=== PATIENT | male | born 1960 | race Caucasian/White ===

== ENCOUNTER 2018-06-20 14:00 | Outpatient (RCR) | payer BC, SELFPAY ==
--- NOTE | 2018-06-20 09:15 | PTTR_ITS ---
DATE: 06/20/18 SUBJECTIVE: Pt states that he did feel a little bit better after the last tx. He actually felt pretty well in terms of mobility as he was on his vacation. However he got back to work today and even after just 2 hours of time he noticed that he was starting to develop some knee pain again. OBJECTIVE: Manual therapy: ([id number]). Pt place din the standing position where he was assessed at the foot with a notable pes cavus deformity. high arch and his shoe wear appears to be very flimsy and non supportive and this may even be a contributing factor. He was advised to possible pursue something a little more stiff through the shank and to supply a much more supportive medial arch. He is then placed in supine receiving gentle long axis traction through the (R) LE and then guided into over pressure with knee extension. After the decompression through the tibial femoral joint was complete through the traction maneuver. He is mobilized with patellar medial glides and then overpressure into hamstring stretching with active isolated stretching technique. He is positioned into prone with knee flexion, coordinated with hip extension to stress the rectus femoris with notable muscle tension through this area and this is done (B). Light anterior glide was supplied with knee in 20-30* of knee flexion. Pt tolerated tx well. He had no pain at the end of tx and a significant relief of his symptoms. Direct treatment time: 30 minutes Total treatment time: 30 minutes
== END 2018-07-08 23:59 | disposition home or self-care (01) ==
LOC: PT 14:00
PROVIDERS: PCP Family Medicine; Referring Provider Family Medicine; Visit Provider Family Medicine
DX: M25.561 Pain in right knee (principal); M25.562 Pain in left knee
CPT/HCPCS: 97140

== ENCOUNTER 2019-10-25 12:47 | Emergency (ER) | payer OTHER, BC, SELFPAY ==
[2019-10-25 12:52] VITALS: BP 127/80; PULSE 72; RESP 18; TEMP 36.5; O2SAT 96
--- NOTE | 2019-10-25 13:03 | ED.GENADUL_ITS ---
Discharge Plan Disposition Patient Disposition: HOME Condition: Stable Discharge Details Chief Complaint: HeadInjury Clinical Impression: Concussion Primary Care Provider: Hollie Weeks ED Provider: Kyler Alegria Discharge Instructions Instructions: Concussion (ED) Medical Decision Making 59 yo male with hx of htn, hld, comes in with cc of head ache. He was pulling out bleachers when he tripped and fell backwards from standing height. He hit the back of his head on the floor, and had loc for 2 seconds per pt. Has posterior head pain without hematomas and left lateral neck tenderness, no midline pain. Has right elbow pain but has full rom of the elbow and no deformity so doubt fx. No chest pain, abd pain. Suspect concussion and cervical strain but given loc will image head and c spine ct negative per Dr. landrum. Will d/c with concussion precautions. Return precautions also given Differential Diagnosis Differential Diagnosis: concussion, tbi, cervical strain Imaging Data Radiologic Study: Attestation: I personally reviewed and interpreted this imaging study as follows: Imaging: CT Scan Radiologist's impression: no acute findings HPI General Mode of arrival: ambulatory . Date/Time Provider Initiated Documentation: 10/25/19 12:59 . Limitations to Documentation: no limitations . Information obtained by: patient . History of Present Illness 59 year old M presents to the emergency department with the chief complaint of head pain, described as moderate, Quality is described as aching, Patient reports no radiation. Patient started experiencing this hour(s) (1) and it has been constant. No relieving factors improve symptom(s), No exacerbating factors reported . Patient notes no other symptoms.. Patient did receive the following treatments prior to arrival, none Related Data Allergies Allergy/AdvReac Type Severity Reaction Status Date / Time No Known Allergies Allergy Unverified 10/25/19 12:56 General Stated Complaint: HeadInjury KEISHA: 3 Review of Systems All systems reviewed & are unremarkable except as noted in HPI and below Constitutional Constitutional: Denies chills, Denies fever(s) and Denies weakness Cardiovascular Cardiovascular: Denies chest pain and Denies dyspnea Respiratory Respiratory: Denies cough and Denies dyspnea Gastrointestinal Gastrointestinal: Denies abdominal pain, Denies nausea and Denies vomiting Genitourinary Genitourinary: Denies dysuria Musculoskeletal Musculoskeletal: Denies joint swelling Integumentary/Breasts Skin/Breast: Denies rash Neurologic Neurologic: Denies weakness PFSH Social History Smoking/Tobacco Use Status: Former Tobacco Use Alcohol Intake: current Alcohol Intake frequency: a few times a week Substance use type: does not use Do you feel safe at home: Yes Do you feel safe in your relationship?: Yes Exam Const General: no acute distress Orientation: alert HENMT Head: normal to inspection Ears: external ears normal General nose exam: external nose normal Mouth: moist mucous membranes Eyes General: appearance normal, both eyes and all related structures Neck Neck: normal visual inspection Resp Effort & Inspection: normal respiratory effort and able to speak in complete sentences Cardio Rate: regular rate Skin General skin exam: no rashes or lesions noted Neuro General: alert and oriented x3 Extrem General: normal to inspection Psych Mental Status: mental status grossly normal Course Vital Signs Vital signs: Vital Signs Temperature 36.5 C 10/25/19 12:52 Pulse 72 10/25/19 12:52 Respiratory Rate 18 10/25/19 12:52 Blood Pressure 127/80 10/25/19 12:52 Pulse Oximetry 96 10/25/19 12:52 Temperature 36.5 C 10/25/19 12:52 Temperature Source Skin 10/25/19 12:52 Pulse 72 10/25/19 12:52 Respiratory Rate 18 10/25/19 12:52 Respiratory Effort 10/25/19 12:56 Respiratory Depth Normal 10/25/19 12:56 Respiratory Pattern Normal 10/25/19 12:56 Blood Pressure 127/80 10/25/19 12:52 Blood Pressure Position Sitting 10/25/19 12:52 Pulse Oximetry 96 10/25/19 12:52 Oxygen Delivery Method Room Air 10/25/19 12:52 Oxygen Flow Rate 0 10/25/19 12:52 Pain Level 3 10/25/19 12:52
--- NOTE | 2019-10-25 13:24 | DI.CT_ITS ---
EXAM: CT HEAD CERVICAL SPINE WO CLINICAL HISTORY: pain s/p fall TECHNIQUE: Noncontrast COMPARISON: No exams were available for comparison FINDINGS: Head CT: No intracranial hemorrhage or skull fracture is seen. There is no evidence of infarct or m ass. There are no significant white matter changes or atrophy. The ventricles are normal in size. The orbits, sinuses and mastoid air cells are unremarkable. C-spine CT: There is no evidence of fracture. The alignment is normal. There are mild degenerative disc changes. There is an incidental posterior calcification. The airway appears intact. There is no paraspinal hematoma. IMPRESSION: No acute abnormality.
== END 2019-10-25 13:55 | disposition home or self-care (01) ==
PROVIDERS: Emergency Provider Emergency Medicine; PCP Family Medicine
DX: S06.0X1A Concussion with loss of consciousness of 30 minutes or less, initial encounter (principal); S16.1XXA Strain of muscle, fascia and tendon at neck level, initial encounter; W01.198A Fall on same level from slipping, tripping and stumbling with subsequent striking against other object, initial encounter; M25.521 Pain in right elbow
CPT/HCPCS: 99284; 70450; 72125

== ENCOUNTER 2019-11-02 08:42 | Emergency (ER) | payer OTHER, BC, SELFPAY ==
[2019-11-02 08:46] VITALS: BP 128/74; PULSE 79; RESP 16; TEMP 36.4; O2SAT 97
[2019-11-02] MEDS: diazePAM 5 MG TAB PO (09:26)
--- NOTE | 2019-11-02 10:35 | DI.CT_ITS ---
EXAM: CT HEAD WO CLINICAL HISTORY: tinnitus, nausea, head injury, r/o delayed bleed TECHNIQUE: The exam was performed according to the usual protocol. COMPARISON: CT HEAD CERVICAL SPINE WO from 10/25/2019 FINDINGS: Ventricles and sulci are consistent with the patient's age. No intracranial hemorrhage, midline shif t or mass effect is identified. The ventricles are intact. The basilar cisterns are patent. There is mucosal thickening in the ethmoid air cells and maxillary sinuses bilaterally. No fluid levels ar e seen in the visualized paranasal sinuses. The mastoid air cells are well pneumatized. The calvari um is intact. IMPRESSION: No acute intracranial process. The findings were discussed with the emergency department on the date of the examination.
--- NOTE | 2019-11-02 10:51 | W.ED.GENAD ---
Discharge Plan Disposition Patient Disposition: HOME Condition: Stable Discharge Details Chief Complaint: HeadInjury Clinical Impression: Concussion Primary Care Provider: Hollie Weeks ED Provider: Lindsey Cobb Home Meds and New Rx's Prescriptions: New upgydxghen-sjsfwlyithkwn-sbxn [Fioricet] 50-300-40 mg capsule 1 cap PO TID PRN (Reason: pain) Qty: 3 RF: 0 Discharge Instructions Instructions: Concussion (ED) Additional Instructions: Please minimize your daily activities. Rest activities as tolerated. Sleep plenty. Drink plenty of fluids. Continue Naprosyn and Tylenol as discussed. Avoid screen use, reading or higher functioning activities as discussed. Your CT scan today is normal and very reassuring. Follow-up with neurology or occupational medicine for reevaluation as discussed. Referral to neurology was provided. Return for any worsening, alarming symptoms or concerning symptoms sooner if needed Stand Alone Forms: Work Release Referrals: Aurora Stewart MD [ [facility] STAFF PHYSICIAN] - Discharge Data Discharge Date/Time-TO BE ENTERED AT DEPARTURE: 11/02/19 11:24 Medical Decision Making This is a 59-year-old gentleman who presents after a head injury on the of this month falling and striking his head posterior associated with loss of consciousness. Was seen and evaluated in the emergency room had CT head and cervical spine which were unremarkable. Patient reports escalation of symptoms last few days specifically with new onset of nausea without vomiting associated with left ear tinnitus. Patient reports persistent posterior head discomfort and reports a numbness. Denies active vision change. Patient does on exam have a mild unsteady gait however cerebellar function is normal as tested on his neurologic exam with bustqg-hzim-xrcuwy testing. Patient's does have a horizontal nystagmus but otherwise his neurologic exam is unremarkable. Patient speech is clear. Patient does report increase in symptomatology with use of screens or mild activities at home. Patient has been seen by occupational medicine earlier this week and advised to minimize activities. Patient is concerned with new onset of symptoms if there is any delayed injury. Attempted MRI which patient was unable to tolerate after medication Will CT head as patient is unable to tolerate MRI to rule out any delayed intracranial hemorrhage. Per Dr. Kay's verbal report patient has a normal CT of the head and no identified intracranial bleeding. Discussed use of Fioricet for symptomatic relief. Patient consents to 3 tablets in 1 day trial if helpful will speak to his occupational medicine or PCP regarding continuing the medication. Work note provided. The patient was stable and requested discharge. Prior to discharge, my usual and customary return precautions were reviewed with the patient - this included follow-up instructions and reasons to return to the Emergency Department if conditions worsens, does not improve as expected, or other new concerns arise. HPI General Date/Time Provider Initiated Documentation: 11/02/19 08:42. HPI Narrative: Is a 59-year-old patient who presents to the emergency room for concerns of new symptoms attributed to a recent head injury. Patient reports he fell backwards from the bleachers from a standing height striking his head posteriorly on the gym floor. This occurred at work. Patient reports he had a brief 2-second loss of consciousness. Was evaluated in the emergency room fairly immediately after his onset of symptoms and did have a CT of his head and cervical spine which were unremarkable for identifiable intracranial hemorrhage or cervical spine fracture. Patient reports he returned to work the following day, patient at this time is complaining of new onset of tinnitus in the left ear. Patient also complaining of nausea which was noted yesterday evening after [place] dinner. Patient attributed this to eating too much however patient is feeling quite anxious. Patient is somewhat tearful. Patient reports significant difficulty focusing when reading and worsening frustration when using screens or tablets. Patient concerned with the possibility of escalating head injury symptoms and new symptoms which have developed in last few days Related Data Home Medications Medication Instructions Recorded Confirmed qvdlvomwxj-jotzzylhiazdi-gfay 1 cap PO TID PRN #3 cap 11/02/19 [Fioricet] Previous Rx's Medication Instructions Recorded chxojguvos-ysgyeglghiffw-ntwt 1 cap PO TID PRN #3 cap 11/02/19 [Fioricet] Allergies Allergy/AdvReac Type Severity Reaction Status Date / Time No Known Allergies Allergy Verified 10/30/19 14:35 General Stated Complaint: HeadInjury KEISHA: 3 Review of Systems All systems reviewed & are unremarkable except as noted in HPI and below Constitutional Constitutional: Denies chills, Reports fatigue, Denies fever(s), Reports headache(s) and Denies malaise Eyes Eyes: Denies blind spots, Denies change in vision and Denies diplopia ENT Ears, Nose, Mouth, and Throat: Denies vertigo, Reports dizziness, Denies ear discharge, Denies otalgia, Reports headache(s), Reports tinnitus, Denies sinus pain and Denies sinus pressure Gastrointestinal Gastrointestinal: Denies diarrhea, Reports nausea and Denies vomiting Musculoskeletal Musculoskeletal: Denies numbness and Denies tingling Neurologic Neurologic: Denies vertigo, Reports dizziness, Reports headache(s), Denies numbness, Denies tingling and Denies paresthesias Endocrine Endocrine: Reports fatigue [facility] Medical History Asthma (Chronic) Hyperlipidemia (Acute) Hypertension (Chronic) Social History Smoking/Tobacco Use Status: Former Tobacco Use Alcohol Intake: current Alcohol Intake frequency: a few times a week Substance use type: does not use Do you feel safe at home: Yes Do you feel safe in your relationship?: Yes Exam Narrative Exam Narrative: CONST: Healthy appearing patient, in no acute distress. Well hydrated. Alert and alert. HENMT: Head nomocephalic, normal to inspection. Atraumatic. Hearing grossly normal. External ear canal no erythema or swelling. TM normal bilaterally. Nose normal to inspection. No rhinnorhea. Normal facial exam. Oral mucosa normal. Tounge normal. Dentition normal. Normal posterior oropharynx. Uvula midline. EYES: General normal appearance. Alignment normal. Eyelids normal. Conjunctiva normal. Sclera normal. PERRL. Horizontal nystagmus present NECK: Normal visual inspection. FROM. No lymphadenopathy. Trachea midline. mild cervical midline tenderness. CHEST: Normal insepection of the chest. MUSCULOSKELETAL: mild of balanced Gait. FROM of all extremities. Distal neurovascularly intact. Sensation intact distally. SKIN: Normal. Dry. No rashes. NEURO: Alert and awake. Speech clear. Alert and oriented x 3. Speech is clear. Cranial nerves intact as tested III - XI. Normal Xigces-ef-zwba test. No pronator drift. Normal heel-montoya test. No Nystagmus. Gait normal. Strength intact in all extremities. Sensation intact in all extremities. PSYCH: Normal affect. Cooperative. Course Vital Signs Vital signs: Vital Signs Temperature 36.4 C L 11/02/19 08:46 Pulse 79 11/02/19 08:46 Respiratory Rate 16 11/02/19 08:46 Blood Pressure 128/74 11/02/19 08:46 Pulse Oximetry 97 11/02/19 08:46 Temperature 36.4 C L 11/02/19 08:46 Temperature Source Temporal Artery Scan 11/02/19 08:46 Pulse 79 11/02/19 08:46 Respiratory Rate 16 11/02/19 08:46 Respiratory Effort Non-Labored 11/02/19 08:46 Respiratory Depth Normal 11/02/19 08:46 Respiratory Pattern Normal 11/02/19 08:46 Blood Pressure 128/74 11/02/19 08:46 Blood Pressure Position Sitting 11/02/19 08:46 Pulse Oximetry 97 11/02/19 08:46 Oxygen Delivery Method Room Air 11/02/19 08:46 Oxygen Flow Rate 0 11/02/19 08:46 Pain Level 2 11/02/19 08:46
[2019-11-02 11:17] VITALS: BP 116/69; PULSE 68; RESP 18; O2SAT 96
== END 2019-11-02 11:24 | disposition home or self-care (01) ==
PROVIDERS: Emergency Provider Physician Assistant; PCP Family Medicine
DX: S09.90XA Unspecified injury of head, initial encounter (principal); S06.0X9A Concussion with loss of consciousness of unspecified duration, initial encounter; H93.12 Tinnitus, left ear; R11.0 Nausea; W00.0XXA Fall on same level due to ice and snow, initial encounter
CPT/HCPCS: 99284; 70450

== ENCOUNTER 2019-11-30 09:48 | Emergency (ER) | payer BC, SELFPAY ==
[2019-11-30] VITALS (16 sets, daily range): BP systolic 118–132; BP diastolic 66–82; PULSE 65–78; RESP 16–23; TEMP 36.6; O2SAT 93–98
--- NOTE | 2019-11-30 10:15 | ED.GENADUL_ITS ---
Discharge Plan Disposition Patient Disposition: HOME Condition: Fair Discharge Details Chief Complaint: Abd Prob Clinical Impression: Diverticulitis Primary Care Provider: Hollie Weeks ED Provider: Idalia Talavera Home Meds and New Rx's Prescriptions: New metronidazole [Flagyl] 500 mg tablet 500 mg PO TID 10 Days Qty: 30 RF: 0 ciprofloxacin HCl [Cipro] 500 mg tablet 500 mg PO BID 10 Days Qty: 20 RF: 0 oxycodone 5 mg capsule 5 mg PO Q6H PRN (Reason: pain) Qty: 7 RF: 0 Continued aspirin 81 mg tablet 81 mg PO DAILY RF: 0 pravastatin 20 mg tablet 20 mg PO DAILY RF: 0 metoprolol succinate 200 mg tablet extended release 24 hr 200 mg PO DAILY RF: 0 losartan 50 mg tablet 50 mg PO DAILY RF: 0 albuterol sulfate 90 mcg/actuation HFA aerosol inhaler 1 puff IH ONCE PRNRF: 0 omega-3 fatty acids Capsule 1,200 mg PO DAILY RF: 0 magnesium oxide 400 mg magnesium Tablet 400 mg PO DAILY RF: 0 Discharge Instructions Instructions: Diverticulitis (ED), Diverticulitis Diet (ED) Additional Instructions: Encourage water intake. Please take the antibiotics as prescribed. Even if symptoms improve, please take the entire course. You may use Tylenol and/or ibuprofen as needed for discomfort. If this is insufficient, please augment with the oxycodone as prescribed. Take this medication only as prescribed and do not drive while taking this medication. You have an appointment tomorrow morning at 930 with your primary care for reevaluation. If you develop fever/chills, increased pain or other new/worsening symptoms please seek care urgently once again. Stand Alone Forms: Work Release Referrals: Hollie Weeks [Primary Care Provider] - Discharge Data Discharge Date/Time-TO BE ENTERED AT DEPARTURE: 11/30/19 15:45 Medical Decision Making Patient is a pleasant 59-year-old male presents today with chief complaint of left lower quadrant pain. He reports this began 2 days ago. Denies any fevers or chills. Reports the pain has progressively been increasing. Denies nausea vomiting. No change in bowel habits. No change in appetite. States that this pain is similar to when he has had diverticulitis historically. He has not noted any melena, hematochezia. No hematuria. No back pain. No difficulty with voiding. No previous abdominal surgeries. On exam, patient is resting comfortably. He appears nontoxic. Vital signs within normal limits. Patient is exquisitely tender in the left lower quadrant. He does have guarding but no rebound tenderness. No pain elsewhere about the abdomen. I am primary concern for diverticulitis patient has had this historically. His last colonoscopy was [address] to rule out evidence of complications or other underlying abdominal etiology. Labs reviewed. No leukocytosis. AST and ALT are both minimally elevated 44 and 66 respectively. Lipase is within normal limits. Does have trace blood in his urine. CT reviewed by radiologist, significant for diverticulitis. No evidence of abscess or free air. Discussed findings with patient. Will begin on Ciprofloxacin, Flagyl. Patient has received IV Tylenol and a total of 2mg IV dilaudid, patient feeling someowhat improved. Will give Toradol as well. Patient feels improved and is ready for discharge. We discussed the concerns and possible risks of diverticulitis. As he is able to tolerate PO intake and is feeling improved, I feel that outpatient management is appropriate for the patient. He was given strict return precautions. Was given first dosing of antibiotics here, tolerated well. Advised non-opiate pain management first. As his pain was initially quite severe, will dischargge with prescription for Oxycodone to be used if the non-opiate options are insufficient. Discussed safe usage, safe storage. Encouraged water intake. Called patient's primary care and is able to get an appointment tomorrow 9:30AM with PCP. All of their questions and concerns were addressed, they are in agreement with this plan. [facility] General Mode of arrival: ambulatory . Date/Time Provider Initiated Documentation: 11/30/19 10:15 . Limitations to Documentation: no limitations . Information obtained by: patient, family () and RN notes reviewed . History of Present Illness 59 year old M presents to the emergency department with the chief complaint of LLQ pain, described as severe and similar to prior episodes (hx of diveriticulitis 15 years ago, feels similar), with intensity rated at 8. Quality is described as stabbing, and is localized to the abdomen. Patient reports no radiation. Patient started experiencing this day(s) (2) and it has been constant. No relieving factors improve symptom(s), No exacerbating factors reported . Patient notes denies chest pain, diaphoresis, fever/chills, loss of appetite, nausea/vomiting, rash, shortness of breath and weakness. Patient did receive the following treatments prior to arrival, none Related Data Home Medications Medication Instructions Recorded Confirmed albuterol sulfate 90 mcg/actuation 1 puff IH ONCE PRN 11/09/19 11/30/19 aerosol inhaler aspirin 81 mg tablet 81 mg PO DAILY 11/09/19 11/30/19 losartan 50 mg tablet 50 mg PO DAILY 11/09/19 11/30/19 metoprolol succinate 200 mg 200 mg PO DAILY 11/09/19 11/30/19 tablet,extended release 24 hr omega-3 fatty acids 1,200 mg PO DAILY cap 11/09/19 11/30/19 pravastatin 20 mg tablet 20 mg PO DAILY 11/09/19 11/30/19 ciprofloxacin HCl [Cipro] 500 mg PO BID 10 Days #20 tab 11/30/19 magnesium oxide 400 mg PO DAILY 11/30/19 11/30/19 metronidazole [Flagyl] 500 mg PO TID 10 Days #30 tab 11/30/19 oxycodone 5 mg PO Q6H PRN #7 cap 11/30/19 Previous Rx's Medication Instructions Recorded ciprofloxacin HCl [Cipro] 500 mg PO BID 10 Days #20 tab 11/30/19 metronidazole [Flagyl] 500 mg PO TID 10 Days #30 tab 11/30/19 oxycodone 5 mg PO Q6H PRN #7 cap 11/30/19 Allergies Allergy/AdvReac Type Severity Reaction Status Date / Time No Known Allergies Allergy Verified 11/30/19 09:59 General Stated Complaint: Abd Prob KEISHA: 3 Review of Systems Constitutional Constitutional: Reports as per HPI, Denies chills, Denies fatigue, Denies fever(s) and Reports headache(s) (improving, had concussion a month ago, still has mild persistent symptoms) ENT Ears, Nose, Mouth, and Throat: Reports headache(s) (improving, had concussion a month ago, still has mild persistent symptoms) Cardiovascular Cardiovascular: Reports as per HPI, Denies chest pain and Denies dyspnea Respiratory Respiratory: Reports as per HPI, Denies cough and Denies dyspnea Gastrointestinal Gastrointestinal: Reports as per HPI, Denies melena, Denies change in stool character, Denies cramping, Denies fecal incontinence, Denies nausea, Denies vomiting and Denies hematemesis Genitourinary Genitourinary: Denies system reviewed and no additional complaints, except as docu (patient denies any change in urinary habits) Musculoskeletal Musculoskeletal: Reports as per HPI and Denies back pain Integumentary/Breasts Skin/Breast: Reports as per HPI and Denies rash Neurologic Neurologic: Reports as per HPI and Reports headache(s) (improving, had concussion a month ago, still has mild persistent symptoms) Endocrine Endocrine: Denies fatigue [facility] Medical History Anxiety (Chronic) Asthma (Chronic) Hyperlipidemia (Acute) Hypertension (Chronic) Social History Smoking/Tobacco Use Status: Former Tobacco Use Alcohol Intake: current Alcohol Intake frequency: a few times a week Drug use: Never Substance use type: does not use Number of Children: 1 What is your relationship status?: Panel score (0-1 are the most socially isolated patients): 1 Seatbelt use: always Do you feel safe at home: Yes Do you feel safe in your relationship?: Yes Exam Const General: cooperative, healthy appearing, comfortable, no acute distress and well developed Nutritional Appearance: well nourished and overweight Orientation: alert and awake HENVA Head: normal to inspection Mouth: moist mucous membranes Resp Effort & Inspection: normal respiratory effort, able to speak in complete sentences and no respiratory distress Auscultation: clear to auscultation bilaterally, no rales, no rhonchi and no wheezes Cardio Rate: regular rate Rhythm: regular rhythm Heart Sounds: S1 normal and S2 normal GI Inspection: normal to inspection, no edema, non-distended, no visible herniation and no visible pulsation Palpation: soft, no hepatosplenomegaly, no aortic enlargement, not firm, guarding in the LLQ, no hernias, no masses, not rigid and tender in the LLQ; with no rebound tenderness Percussion: normal to percussion Auscultation: normal bowel sounds Back/Spine/Pelvis Back: no CVA tenderness Skin General skin exam: no rashes or lesions noted Trauma: no lacerations or abrasions Neuro General: alert and awake Cognition: normal cognition Speech: speech normal Gait: normal gait Psych Appearance: grossly normal and well kempt Mental Status: mental status grossly normal Speech and Movement: speech and movement normal Course Vital Signs Vital signs: Vital Signs Temperature 36.6 C 11/30/19 09:54 Pulse 70 11/30/19 09:54 Respiratory Rate 16 11/30/19 09:54 Blood Pressure 132/82 11/30/19 09:54 Pulse Oximetry 98 11/30/19 09:54 Temperature 36.6 C 11/30/19 09:54 Temperature Source Skin 11/30/19 09:54 Pulse 70 11/30/19 09:54 Respiratory Rate 16 11/30/19 09:54 Respiratory Effort 11/30/19 10:01 Blood Pressure 132/82 11/30/19 09:54 Pulse Oximetry 98 11/30/19 09:54 Oxygen Delivery Method Room Air 11/30/19 09:54 Oxygen Flow Rate 0 11/30/19 09:54 Pain Level 8 11/30/19 09:54
[2019-11-30] MEDS: Breeza Beverage 473 ML BTL PO ×2 (10:41→10:42)
[2019-11-30] MEDS: Omnipaque 350 MG/ML 50 ML BTL PO (10:42)
[2019-11-30] MEDS: HYDROmorphone 2 MG/ML VIAL 1 MG IVP ×2 (11:31→11:56)
[2019-11-30] MEDS: Normal Saline 1,000 ML 1000 ML IV (11:32)
[2019-11-30] MEDS: Normal Saline Flush 10 ML SYR IVP (11:35)
[2019-11-30 11:40] LABS: Bilirubin Negative (Negative); Blood Trace-lysed (Negative); Clarity Clear (Clear); Glucose Negative (Negative); Ketones Negative (Negative); Leukocyte Esterase Negative (Negative); Nitrite Negative (Negative); Specific Gravity >= 1.030 (1.005-1.025); Urobilinogen 0.2 EU/dL (Up TO 0.2)
[2019-11-30 11:40] LABS: Lactate 1.2 mmol/L (0.6-1.4)
[2019-11-30 11:46] LABS: Abs Immature Grans 0.02 k/cumm (0.0-0.09); Absolute Basophil Count 0.02 k/cumm (0.0-0.2); Absolute Eosinophil Count 0.23 k/cumm (0.0-0.7); Absolute Lymphocyte Count 1.58 k/cumm (1.2-3.4); Absolute Monocyte Count 0.68 k/cumm (0.11-0.7); Absolute Neutrophil Count 6.62 k/cumm (1.2-6.7); Basophils % 0.2; Eosinophils % 2.5; HCT 46.1 % (40.0-50.0); HGB 15.6 g/dL (13.5-17.5); Immature Grans % 0.2 %; Lymphocytes % 17.3; Mean Corp. HGB Concentration 33.8 g/dL (32.0-36.0); Mean Corpuscular Hemoglobin 33.1 pg (27.0-33.0); Mean Corpuscular Volume 97.7 fL (80-95); Mean Platelet Volume 10.1 fL (8.0-11.0); Monocytes % 7.4; Neutrophils % 72.4; Platelet Count 216 x1000/uL (130-400); RBC 4.72 m/cumm (4.50-6.00); RBC Distribution Width 13.1 % (11.8-14.1); White Blood Cell Count 9.15 k/cumm (4.4-10.8)
[2019-11-30 11:57] LABS: ALT 66 U/L (16-63); AST 44 U/L (15-37); Albumin 4.1 g/dL (3.4-5.0); Alkaline Phosphatase 77 U/L (46-116); Anion Gap 9.9 mmol/L (3-11); BUN 19 mg/dL (7-18); Bilirubin, Total 0.5 mg/dL (0.2-1.0); CO2 28.1 mmol/L (21.0-32.0); CREATININE 1.03 mg/dL (0.70-1.30); Chloride 102 mmol/L (98-107); Glucose 105 mg/dL (74-106); Lipase 122 U/L (73-393); Sodium 140 mmol/L (136-145); Total Protein 7.7 g/dL (6.4-8.2)
[2019-11-30] MEDS: ACETAMINOPHEN 1,000 MG/100 ML BTL 400 MG IVPB (12:01)
[2019-11-30 12:09] LABS: Bacteria Negative HPF (Negative); C & S Indicated? No; Casts Negative LPF (Negative); Crystals Negative HPF (Negative); Epithelial Cells Negative HPF (Negative); Mucus Negative (Negative); Other Cells Negative (Negative); RBC 0-2 HPF (0-2); WBC 0-2 HPF (0-5)
--- NOTE | 2019-11-30 12:30 | DI.CT_ITS ---
EXAM: CT ABDOMEN PELVIS W CLINICAL HISTORY: LLQ pain, hx of diverticulitis. TECHNIQUE: Imaging Protocol: Axial computed tomography images with coronal and sagittal reformatted images were created and reviewed CONTRAST MATERIAL: Intravenous: Omnipaque 350 Contrast volume:100 mL Oral: Yes COMPARISON: No exams were available for comparison FINDINGS: ABDOMEN: Lung Bases: There is dependent atelectasis. Liver: There is diffuse decreased attenuation of the liver consistent with hepatic steatosis. There are hepatic cysts present. Gallbladder and biliary tract: No radiodense calculus or dilation. Pancreas: Normal density, no abnormal calcifications or inflammatory process. Spleen: Normal. Splenic granuloma. Kidneys: Normal size, contour and axis. No radiodense stones or obstructive uropathy. No masses seen. Adrenal glands: No masses seen. Abdominal Aorta: Mild atherosclerosis. No aneurysm. PELVIS: Bladder: Symmetric distention, no gross wall thickening. Bowel: There is diverticulosis seen in the descending and sigmoid colon. There is focal bowel wall t hickening and pericolonic inflammatory change seen at the junction of the sigmoid and descending colo n consistent with acute diverticulitis. No abscess or free air is present. Normal appendix is visua lized. The remainder of the bowel is unremarkable. Peritoneal cavity: No ascites, collection or mesenteric inflammatory response. Bones: Degenerative changes. Reproductive organs: Within normal limits. Lymph nodes: Unremarkable. Impression: Findings of acute diverticulitis at the junction of the descending and sigmoid colon. No abscess or free air. The findings were discussed with the emergency department on the date of the examination. DATA REPOSITORY: All CT scans at this facility are submitted to the National Radiology Data Registry (NRDR) Dose Index Registry (DIR) with the [employer] ([employer]). RADIATION OPTIMIZATION: All CT scans at this facility use at least one of these dose optimization te chniques: automated exposure control; mA and/or kV adjustment per patient size (includes targeted exa ms where dose is matched to clinical indication); or iterative reconstruction.
[2019-11-30] MEDS: Omnipaque 350 MG/ML 100 ML BTL IJ (12:39)
[2019-11-30] MEDS: HYDROmorphone 2 MG/ML VIAL (13:12)
[2019-11-30] MEDS: Ketorolac 30 MG/ML VIAL IVP (13:18)
[2019-11-30] MEDS: Ciprofloxacin 500 MG TAB PO (13:21)
[2019-11-30] MEDS: metroNIDAZOLE 500 MG TAB PO (13:21)
== END 2019-11-30 15:45 | disposition home or self-care (01) ==
PROVIDERS: Emergency Provider Physician Assistant; PCP Family Medicine
DX: K57.92 Diverticulitis of intestine, part unspecified, without perforation or abscess without bleeding (principal); I10 Essential (primary) hypertension
CPT/HCPCS: 80053; 83690; 96361; 96365; 96375; 96376; 99285; 74177; 81003; 81015; 83605; 85025; J0131; J1885; J3490; Q9967

== ENCOUNTER 2020-05-30 12:58 | Outpatient (CLI) | payer BC, SELFPAY ==
--- NOTE | 2020-05-30 15:00 | NS.NUTBLAN_ITS ---
Freddie was referred for Medical Nutrition Therapy for weight management. Wt: 236 lbs, BMI 33 indicating class 1 obesity. Usual weight for him is 210-215 lbs. Meds include pravastatin. He reports 20 lbs weight gain since he stopped chewing tobacco 3 months ago after his concussion. Since that time, he reports extreme fatigue, continued weight gain and hunger. He reports bloating after meals. 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 He reports fatigue most days starting after 10 am and is not related to lack of sleep. Diet recall indicates reliance on convenience foods but typically he follows schedule. No energy to exercise. He is here today since he wants to lose weight and feel better. He reports hx of Vit. D deficiency and takes supplement. Family hx of DM but his numbers have been fine thus far. Weight gain and fatigue typical of 59 year old male after stopping tobacco product, however, fatigue may also be related to statin. Freddie to follow up with PCP re: this concern. I educated Freddie on diet principles for weight management by lowering intake of simple carbs and increasing non starchy vegetables, fruit, complex carbs and lean protein. Provided meal plans. Encouraged Freddie to log is diet on abhay on phone and to follow : [id number] kcal, 80-100 g carb, 60-80 g protein. Daily walk or weight lifting encouraged. goal: 5 lbs wieght loss per month to goal weight of 210 lbs. Plan: follow meal plan as provided, follow up with PCP re: potential for statin drug/fatigue, exercise daily 15-20 minutes, follow up with fiction writer every 4 weeks, no follow up visit made today, will call for future appt.
== END 2020-05-30 13:18 ==
PROVIDERS: PCP Family Medicine; Visit Provider Dietitian, Registered
DX: R63.5 Abnormal weight gain (principal); R53.83 Other fatigue; Z71.3 Dietary counseling and surveillance
CPT/HCPCS: 97802

== ENCOUNTER 2022-07-08 06:31 | Emergency (ER) | payer BC, SELFPAY ==
[2022-07-08 06:38] VITALS: BP 161/86; PULSE 96; RESP 16; TEMP 36.3; O2SAT 97
--- NOTE | 2022-07-08 06:42 | ED.GENADUL_ITS ---
Discharge Plan Disposition Patient Disposition: HOME Condition: Stable Discharge Details Clinical Impression: COVID-19 Primary Care Provider: Hollie Weeks ED Provider: Tushar Agustins and New Rx's Prescriptions: New benzonatate 100 mg capsule 100 mg PO TID PRN (Reason: cough) Qty: 20 0RF Paxlovid (EUA) 300 mg (150 mg x 2)-100 mg tablets,dose pack See Rx Instructions .ROUTE .COMPLEX Qty: 30 0RF Rx Instructions: take TWO 150 mg tablets of nirmatrelvir with ONE 100 mg tablet of ritonavir twice daily for 5 days Continued aspirin 81 mg tablet 81 mg PO DAILY losartan 50 mg tablet 50 mg PO DAILY albuterol sulfate 90 mcg/actuation HFA aerosol inhaler 1 puff IH ONCE PRN Held pravastatin 20 mg tablet 20 mg PO DAILY Hold Instructions: Resume on 07/13/22. hold if you decide to take the Paxlovid metoprolol succinate 200 mg tablet extended release 24 hr 200 mg PO DAILY Hold Instructions: Resume on 07/13/22. hold if you decide to take the Paxlovid Discharge Instructions Instructions: Pulse Oximetry (ED), COVID-19 (Coronavirus Disease 2019) (ED) Additional Instructions: You were seen for cough and mild shortness of breath in the setting of COVID. Your exam and vitals are reassuring and you have been fully vaccinated and should do well. You should use your albuterol inhaler every 4 to 6 hours while sick. You may take benzonatate to help control your cough. Rest and drink plenty of fluids and continue to check your oxygen level at home including while walking. A prescription for the Paxlovid has been sent along with the benzonatate. If you decide to take the Paxlovid for COVID then hold your metoprolol and pravastatin until you have completed the course. Would discuss with your doctor this morning when you have your appointment. Return to the ED for low oxygen levels, trouble breathing, chest pain, confusion, vomiting, other concerns. Referrals: Hollie Weeks [Primary Care Provider] - Medical Decision Making Patient presenting with uncontrollable cough and coughing fits secondary to COVID. Has had normal oxygen levels at home and here. Is not necessarily short of breath except when having coughing fits. Denies any chest pain. Is fully vaccinated against COVID. His lungs are clear on exam and he looks well. Will prescribe benzonatate for his cough. We will have him use his inhaler every 4-6 hours while ill. Discussed taking Paxlovid and which medications he would need to hold while doing so. Prescription was sent along with the benzonatate to pharmacy. However, he will discuss with his primary care this morning prior to initiating the Paxlovid. Return precautions provided. HPI General Date/Time Provider Initiated Documentation: 07/08/22 06:42 . Information obtained by: patient and RN notes reviewed . HPI Narrative: Patient presents to ED with severe cough secondary to COVID. Patient reports developing sore throat 2 days ago which progressed to cough yesterday. Tested positive for COVID yesterday. Denies having fever, chest pain. Minimal shortness of breath and normal oxygen level at home when checked. He has had his series of COVID vaccinations. He does have mild asthma and has been using his inhaler. Woke up this morning with coughing fit and unable to catch his breath. Kind of concerned him so he came into ED. He is having some belly pain from all the coughing but denies any nausea, vomiting, diarrhea. He has an appointment with his primary care physician this morning. Related Data Home Medications Medication Instructions Recorded Confirmed albuterol sulfate 90 mcg/actuation 1 puff inhalation ONCE PRN 11/09/19 07/08/22 aerosol inhaler aspirin 81 mg tablet 81 mg PO DAILY 11/09/19 07/08/22 losartan 50 mg tablet 50 mg PO DAILY 11/09/19 07/08/22 metoprolol succinate 200 mg 200 mg PO DAILY 11/09/19 07/08/22 tablet,extended release 24 hr pravastatin 20 mg tablet 20 mg PO DAILY 11/09/19 07/08/22 benzonatate 100 mg capsule 100 mg PO TID PRN cough #20 caps 07/08/22 nirmatrelvir 300 mg (150 mg See Rx Instructions PO .COMPLEX 07/08/22 x2)-ritonavir 100 mg tablet,dose #30 dose pk pack(EUA) (Paxlovid) Previous Rx's Medication Instructions Recorded benzonatate 100 mg capsule 100 mg PO TID PRN cough #20 caps 07/08/22 nirmatrelvir 300 mg (150 mg See Rx Instructions PO .COMPLEX 07/08/22 x2)-ritonavir 100 mg tablet,dose #30 dose pk pack(EUA) (Paxlovid) Allergies Allergy/AdvReac Type Severity Reaction Status Date / Time seasonal Allergy Uncoded 07/08/22 06:42 General Stated Complaint: RespSymp KEISHA: 3 Review of Systems Narrative: 03/21 Review of Systems completed and is negative except as stated above in HPI (Systems reviewed: Const, Resp, CV, GI, Neuro) PFSH All Active Problems (Updated 07/08/22 @ 07:07 by Tushar Agustin MD) COVID-19 (Acute) Vertigo (Acute) Impingement syndrome of left shoulder (Acute) Cervical strain (Acute) Concussion (Acute) Medical History Anxiety Asthma Hyperlipidemia Hypertension Social History Smoking/Tobacco Use Status: Former Tobacco Use Smoking risk assessment performed?: Yes Alcohol Intake: current Alcohol Intake frequency: holidays/special occasions only Drug use: Never Substance use type: does not use Number of Children: 1 What is your relationship status?: Panel score (0-1 are the most socially isolated patients): 1 Seatbelt use: always Do you feel safe at home: Yes Do you feel safe in your relationship?: Yes Exam Narrative Exam Narrative: Const: WDWN male in NAD. Vitals per triage. HEENT: NC/AT. Normal facial exam. Eyes: Normal conjunctiva and sclera. Neck: Supple. Trachea midline. Lungs: Normal respiratory effort. Lungs are clear. There is no wheezing, rhonchi or diminished breath sounds. Cor: RRR without murmur/gallop. Good radial pulses. Neuro: A+O x 3. Normal speech, mentation, gait. Cranial nerves II - XII grossly intact. No gross motor or sensory deficit. Ext: No C/C/E. Skin: Warm and dry without rash. Course Vital Signs Vital signs: Vital Signs Temperature 97.3 F L 07/08/22 06:38 Pulse 96 H 07/08/22 06:38 Respiratory Rate 16 07/08/22 06:38 Blood Pressure 161/86 H 07/08/22 06:38 Pulse Oximetry 97 07/08/22 06:38 Temperature 97.3 F L 07/08/22 06:38 Temperature Source Temporal Artery Scan 07/08/22 06:38 Pulse 96 H 07/08/22 06:38 Respiratory Rate 16 07/08/22 06:38 Respiratory Effort 07/08/22 06:38 Blood Pressure 161/86 H 07/08/22 06:38 Blood Pressure Position Sitting 07/08/22 06:38 Pulse Oximetry 97 07/08/22 06:38 Pain Level 4 07/08/22 06:38
[2022-07-08] MEDS: Benzonatate 100 MG CAP PO (07:30)
== END 2022-07-08 07:26 | disposition home or self-care (01) ==
PROVIDERS: Emergency Provider Emergency Medicine; PCP Family Medicine
DX: U07.1 COVID-19 (principal); I10 Essential (primary) hypertension; J45.909 Unspecified asthma, uncomplicated; Z87.891 Personal history of nicotine dependence
CPT/HCPCS: 99283; 99284

== ENCOUNTER 2023-06-03 07:27 | Outpatient (CLI) | payer BC, SELFPAY ==
--- NOTE | 2023-06-03 09:50 | DI.RAD_ITS ---
Exam(s) XR CERVICAL SP [place] TRAUMA 2-3V EXAM: XR CERVICAL SP [place] TRAUMA 2-3V CLINICAL HISTORY: CHRNOIC HEADACHES,R51.9. TECHNIQUE: 2D digital imaging was performed. COMPARISON: No exams were available for comparison FINDINGS: Five views. No evidence of acute fracture, listhesis, nor offset of the spinal laminar line. Disc spaces exhibit normal height and there are only minimal degenerative changes in the facet joints. No cervical ribs . Calcification in the supraspinous ligament noted. IMPRESSION: Mild findings as above. Incidentally noted is evidence of previous occipital craniotomy. DATA REPOSITORY: RADIATION DOSE DELIVERED:
== END 2023-06-03 07:47 ==
LOC: DI 07:28
PROVIDERS: PCP Family Medicine; Visit Provider Family Medicine
DX: R51.9 Headache, unspecified (principal); Z48.811 Encounter for surgical aftercare following surgery on the nervous system
CPT/HCPCS: 72040

== ENCOUNTER → 2025-02-08 14:04 | Outpatient (BNVA) | payer MEDICARE, OTHER, SELFPAY | PROVIDERS: PCP Family Medicine; Referring Provider Family Medicine; Visit Provider Physical Therapy Assistant | DX: Z12.11 Encounter for screening for malignant neoplasm of colon (principal); Z86.0101 Personal history of adenomatous and serrated colon polyps ==

== ENCOUNTER 2025-08-03 05:54 | Day surgery (SDC) | payer MEDICARE, OTHER, SELFPAY ==
--- NOTE | 2025-08-02 17:21 | W.PM.DSUDISC ---
Date of service: 08/03/25 Discharge Plan Disposition Patient Disposition: Home Condition: Good Discharge Details Reason For Visit: screening colonoscopy Attending Provider: Isaías Kay Primary Care Provider: Hollie Weeks Home Meds and New Rx's Prescriptions: Continued aspirin 81 mg tablet 81 mg PO DAILY metoprolol succinate 200 mg tablet extended release 24 hr 200 mg PO DAILY albuterol sulfate 90 mcg/actuation HFA aerosol inhaler 1 puff IH ONCE PRN losartan 100 mg tablet 100 mg PO DAILY rosuvastatin 40 mg tablet 40 mg PO DAILY omeprazole 20 mg capsule,delayed release(DR/EC) 20 mg PO DAILY nortriptyline 10 mg capsule 20 mg PO QHS PRN metformin 500 mg tablet extended release 24 hr 500 mg PO TID Discontinued bisacodyl [Dulcolax (bisacodyl)] 5 mg tablet,delayed release (DR/EC) 5 mg PO ONCE Qty: 4 0RF Rx Instructions: Take per colonoscopy instructions provided by ordering providers office polyethylene glycol 3350 17 gram/dose powder 17 g PO ONCE Qty: 238 0RF Rx Instructions: Take per colonoscopy instructions provided by ordering providers office Discharge Instructions Instructions: Colon polyps, Diverticulosis Additional Instructions: Freddie, was a pleasure meeting you today, I hope you are comfortable through the procedure. Things went very smoothly. I did find, and removed, 6 polyps today. Generally, these are small, and none of them have any particular features that are worrisome to the naked eye. I will send these all off to the pathologist for them to review. Polyps, different varieties, and we use the information from the polyp examination to help guide the timing of future colonoscopies. Those results will take about a week or 2 to get back, but once my office has that information, we will be in touch with recommendations for your next colonoscopy. Incidentally, you also have some diverticulosis. These are weak spots in the wall of the colon that typically accumulate as we age. I will attach some basic information here about colon and rectal polyps, as well as diverticulosis. If you need anything or have any questions, please do not hesitate to call at any time. 1. If tolerated, consume a soft, low fiber diet for 1-2 days. 2[address] Do not drive, drink alcohol, operate machinery, make critical decisions, or do activities that require coordination or balance for 24 hours. 3. Because air was put into your colon during the procedure, expelling air from your rectum (passing gas or farting) is normal. 4. You may not have a bowel movement for 1-3 days because of the colonoscopy prep. This is normal. 5. Go directly to the emergency room if you notice any of the following: Develop chills (warm to touch), or if you have a thermometer and your temperature is above 101 Difficulty breathing or difficultly swallowing Persistent vomiting Severe abdominal pain, other than gas cramps Severe chest pain Black, tarry stools Any bleeding ? exceeding one tablespoon 6. Call your physician if the site where your intravenous was started becomes red, swollen, painful, and warm to touch. 7. Your physician has reviewed your pre-procedure medications. Please continue to take those medications as previously ordered. You will be given specific information/education regarding any changes to your medications before leaving. Stand Alone Forms: Anesthesia Discharge Inst., Colonoscopy Post Instructions, Ilan Funk (DSU) Activity:: Activity as Tolerated Diet:: As Tolerated Discharge Orders Discharge Orders: Discharge Order (Routine); Ordered 08/02/25 Ordered By: Isaías Kay DS: Diagnosis Discharge Diagnosis (1) Encounter for screening colonoscopy: Status: Acute Asessment and Plan: Follow-up on polypectomy results
--- NOTE | 2025-08-02 17:23 | W.PREOPHP ---
Assessment and Plan Assessment and plan (1) Encounter for screening colonoscopy: Status: Acute Assessment and plan: We reviewed the plan for screening colonoscopy and Freddie had a chance to ask questions about the risks and the benefits. He is able to provide informed consent and we can proceed with colonoscopy as planned. History of Present Illness History of Present Illness Chief Complaint: screening colonoscopy Narrative: 64 y/o male with history of GERD, Obesity, Type 2 DM, HLD, HTN and anxiety presents for colonoscopy screening pre-op. His last screening was in 2019 and was remarkable for tubular adenoma. He denies a family history of colon cancer. He describes having abdominal bloating, flatus and reflux symptoms. He denies any bowel habit changes. He denies constitutional symptoms. He denies chest pain, palpitations, dyspnea or dyspnea with exertion. He denies prior history or family history of adverse reactions or complications with anesthesia. The patient denies any history of stroke, OK, seizures, bleeding or clotting disorders. He denies having any implanted metal in his body. Since his last visit, there have been no major changes with regards to the interval history. 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 [place], acoustic neuroma H/O colonoscopy S/P nasal surgery deviated septum History of colonoscopy with polypectomy (~2018) [facility] Social History Smoking/Tobacco Use Status: Former Tobacco Use Smoking risk assessment performed?: Yes Alcohol Intake: current Alcohol Intake frequency: a few times a month Drug use: Never Substance use type: does not use Housing: house Number of Children: 1 What is your relationship status?: Panel score (0-1 are the most socially isolated patients): 1 Seatbelt use: always Do you feel safe at home: Yes Do you feel safe in your relationship?: Yes Meds Allergies and Home Medications Allergies Allergy/AdvReac Type Severity Reaction Status Date / Time seasonal Allergy Mild Other (See Uncoded 08/03/25 06:34 Comment) Home Medications ?Medication ?Instructions ?Recorded ?Confirmed ?Type albuterol sulfate 90 mcg/actuation 1 puff inhalation ONCE PRN 11/09/19 08/02/25 History aerosol inhaler aspirin 81 mg tablet 81 mg PO DAILY 11/09/19 08/02/25 History metoprolol succinate 200 mg 200 mg PO DAILY 11/09/19 08/03/25 History tablet,extended release 24 hr losartan 100 mg tablet 100 mg PO DAILY 01/04/25 08/03/25 History nortriptyline 10 mg capsule 20 mg PO QHS PRN 01/04/25 08/03/25 History omeprazole 20 mg capsule,delayed 20 mg PO DAILY 01/04/25 08/03/25 History release rosuvastatin 40 mg tablet 40 mg PO DAILY 01/04/25 08/03/25 History metformin 500 mg tablet,extended 500 mg PO TID 02/08/25 08/03/25 History release 24 hr Exam Const General: cooperative, healthy appearing and not in acute distress Neck Neck: normal visual inspection, no lymphadenopathy and supple Resp Effort & Inspection: normal respiratory effort Auscultation: clear to auscultation bilaterally Cardio Jugular venous pressure: no JVD Rate: regular rate Rhythm: regular rhythm Heart Sounds: S1 normal and S2 normal GI Inspection: normal to inspection Palpation: soft, no guarding, no hernias and nontender Percussion: normal to percussion Auscultation: normal bowel sounds Neuro General: patient alert, patient awake and patient oriented x3 Psych Appearance: grossly normal
--- NOTE | 2025-08-02 17:26 | COLE_ITS ---
Date of service: 08/03/25 Time of Service: 08:03 Colonoscopy Report Date of procedure: 08/03/25 Pre-op diagnosis general: screening colonoscopy Post-op diagnosis procedure note: other (Colon polyps, diverticulosis) Procedure: colonoscopy with polypectomy Surgeon: Isaías Kay Anesthesia Type: General:No Airway Estimated blood loss (mL): 10 Pathology: other (0.25 cm rectal polyps x 2 (single specimen), 0.75 cm pedunculated polyp at 35 cm, 0.5 cm flat polyp in the cecum, 0.25 cm flat polyps at 40, and 25 cm) Complications: None Disposition: same day Indications: Freddie is a 65 year old man with a history of adenomatous polyps who needs his next screening colonoscopy Prep: Miralax/Dulcolax Procedure Start Time: 07:28 Procedure End Time: 07:53 Retraction Time: 12 Findings: Colorectal polyps, diverticulosis Procedure Description: After the induction of monitored anesthetic care, and with the patient in left lateral decubitus position, I began by performing an external anorectal exam.? Perineum and skin were normal, as was the anal verge.? Next, I performed a digital rectal exam.? I did not appreciate any abnormal findings.? Next, I advanced a colonoscope into the rectal vault.? I performed retroflexion.? This appeared normal.? There were 2 flat polyps in the rectum, each measuring about 0.25 cm. These were removed with cold forceps and sent as a single specimen. There was minimal bleeding from the sites. Using irrigation, I then advanced the colonoscope beyond the rectal folds and into the sigmoid colon. Around 35 cm from the anal verge is a 0.75 cm pedunculated polyp. This was removed with a energize snare polypectomy. There was minimal bleeding here. There is sigmoid diverticulosis. I continued advancing to the right side. The scope was noted to be in the cecum by identification of the ileocecal valve and appendiceal orifice.? Just a few millimeters from the appendiceal orifice was a 0.25 cm flat polyp. This was removed with cold forceps without any issues. I then began withdrawing the colonoscope using repeated irrigation as necessary for full evaluation of the colonic mucosa. A 0.25 cm flat polyp was found and removed with cold forceps around 40 cm from the anal verge. Another 0.25 cm flat polyp was found at 25 cm. This was also removed with cold forceps without any problems once the scope was withdrawn to the level of the rectum, great care was taken to examine portions of the rectal folds.? Finally, the scope was withdrawn and the patient was brought to the same-day surgery recovery unit as the anesthetic wore off. ?The findings and instructions were shared with the patient prior to discharge. [place] Bowel Prep [place] Bowel Prep Right Colon: 3 Left Colon: 3 Transverse Colon: 3 Total Score: 9
[2025-08-03 06:19] VITALS: BP 134/88; PULSE 89; RESP 17; TEMP 36.5; O2SAT 96
[2025-08-03] MEDS: Lactated Ringers 1,000 ML 80 ML IV (07:02)
--- NOTE | 2025-08-03 07:17 | W.ANESPRE ---
General Info Date of Service Date Performed: 08/03/25 Height: 5 ft 11 in Weight: 99.9 kg Body Mass Index (BMI): 30.7 Surgical Procedure: Operation Date: 08/03/25 07:35 Proposed Procedure Side Surgeon serenity Kay MD Meds Allergies and Home Medications Allergies Allergy/AdvReac Type Severity Reaction Status Date / Time seasonal Allergy Mild Other (See Uncoded 08/03/25 06:34 Comment) Home Medication ?Medication ?Instructions ?Recorded albuterol sulfate 90 mcg/actuation 1 puff inhalation ONCE PRN 11/09/19 aerosol inhaler aspirin 81 mg tablet 81 mg PO DAILY 11/09/19 metoprolol succinate 200 mg 200 mg PO DAILY 11/09/19 tablet,extended release 24 hr losartan 100 mg tablet 100 mg PO DAILY 01/04/25 nortriptyline 10 mg capsule 20 mg PO QHS PRN 01/04/25 omeprazole 20 mg capsule,delayed 20 mg PO DAILY 01/04/25 release rosuvastatin 40 mg tablet 40 mg PO DAILY 01/04/25 metformin 500 mg tablet,extended 500 mg PO TID 02/08/25 release 24 hr Current Visit Medications: Current Medications Generic Name Dose Route Start Last Admin Trade Name Freq PRN Reason Stop Dose Admin Ringer's Solution 1,000 mls @ 80 mls/hr 08/03/25 06:00 08/03/25 07:02 IV 08/03/25 23:59 80 mls/hr INFUSION SANTANA Administration IV Miscellaneous Supplies 1 each 08/03/25 06:00 Iv Access IV 08/03/25 23:59 DIRECTED SANTANA Sodium Chloride 0 ml 08/03/25 06:00 Normal Saline Flush 10 Ml Syr IV 08/03/25 23:59 PRN PRN Sodium Chloride 0 ml 08/03/25 06:00 Normal Saline 10 Ml Vial IJ 08/03/25 23:59 DIRECTED PRN Sterile Water 0 ml 08/03/25 06:00 Water,Injection,Sterile 10 Ml Vial IJ 08/03/25 23:59 DIRECTED PRN PFSH Active Problems Active Problems: Problem Status Onset Code Encounter for screening colonoscopy Acute Z12.11 Facial paralysis on left side Acute G51.0 Arm paresthesia, left Acute R20.2 GERD (gastroesophageal reflux disease) Chronic K21.9 Obesity Chronic E66.9 Type 2 diabetes mellitus Acute E11.9 COVID-19 Acute U07.1 Vertigo Acute R42 Impingement syndrome of left shoulder Acute M75.42 Cervical strain Acute S16.1XXA Concussion Acute S06.0X9A Medical History Medical History Tubular adenoma (~10/17/19) Panic disorder Generalized anxiety disorder Hypercholesterolemia Vitamin D deficiency Anxiety Hyperlipidemia Asthma Hypertension Surgical History Surgical History History of craniotomy 03/08/23 [facility] [place], acoustic neuroma H/O colonoscopy S/P nasal surgery deviated septum History of colonoscopy with polypectomy (~2018) [facility] Tobacco Smoking/Tobacco Use Status: Former Tobacco Use Alcohol Alcohol Intake: current Alcohol intake frequency: a few times a month Substance Use Substance use: Never Substance use type: does not use Vital Signs and Lab Results Vital Signs Most Recent Vital Signs in EMR: Most Recent Vital Signs Temp Pulse Resp BP Pulse Ox 36.5 C 89 17 134/88 96 08/03/25 06:19 08/03/25 06:19 08/03/25 06:19 08/03/25 06:19 08/03/25 06:19 Point of Care Results Point of Care Results: Finger Stick Blood Glucose 134 08/03/25 07:05 Anesthesia Assessment and Plan Anesthesia History Personal History: No History of Anesthesia Complications Family History: No Family History of Anesthesia Complications Exercise Tolerance Exercise Tolerance: Metabolic Equivalents>4 Pertinent Negatives Pertinent Negatives: No Symptoms of GERD (rx) Cardiac & Pulmonary Exam Cardiac Exam: Normal S1/S2 Heart Sounds Pulmonary Exam: Clear Bilateral Breath Sounds Implantable Cardiac Device Does patient have a Pacemaker or an ICD?: No Airway Exam Known Difficult Airway: No Mallampati Class: 2 Mouth Opening: Normal (> 3cm) Thyromental Distance: Greater than 3 cm Neck Range of Motion: Full ROM Neck Circumference: Normal Teeth Condition: Normal Dentition ASA Classification ASA Score: ASA 3 Emergency Case?: No NPO Status NPO Status: NPO Clears >2 hours, Solids >8 hours Anesthesia Plan Resuscitation Status: Full Code Anesthesia Technique: General Anesthesia Airway Planned: Natural Airway Monitors Used: Standard Monitors Preoperative Comments:: Post acoustic neuroma
[2025-08-03 07:19] VITALS: BMI 30.7
--- NOTE | 2025-08-03 07:28 | BOWEL_PTH ---
PATIENT: Freddie Duncan LOC: [facility] U#:[id number] AGE/SX: 65/M ROOM: RE08/03/[address]: Isaías Kay MD : [id number] BED: DIS: 08/03/2025 SPEC #: [id number] RECD: 08/03/25 12:20 STATUS: ROCHELLE RE #: [id number] JENN: 08/03/25 07:[address]: Isaías Kay DEPT: Surgical Specimen RECD BY: Sienna Bowers ENTERED: 08/03/25 12:23 SP TYPE: Bowel OTHR DR: Hollie Weeks Tissues: 1 - BIOPSY BOWEL 2 - BIOPSY BOWEL 3 - BIOPSY BOWEL 4 - BIOPSY BOWEL 5 - BIOPSY BOWEL Procedures: GROSS AND MICRO LEVEL 4 Comments: [id number]
[2025-08-03 07:58] VITALS: BP 144/78; PULSE 85; RESP 16; TEMP 36.5; O2SAT 94
--- NOTE | 2025-08-03 08:08 | NUR.NOTE ---
PT had a syncople episode during his IV start, no LOC , he was placed in reverse trendelenburg breifly with cool cloth to the head. he was diuphoretic . B.P. was WNL. Nursing Note:
--- NOTE | 2025-08-03 08:11 | W.ANESPOSTOP ---
Postoperative Evaluation Date, Time and Location Date Performed: 08/03/25 Time Performed: 08:11 Patient Location: Day Surgery Unit Vital Signs Most Recent Imported Vital Signs: Most Recent Vital Signs Temp Pulse Resp BP Pulse Ox 36.5 C 85 16 144/78 H 94 08/03/25 07:58 08/03/25 07:58 08/03/25 07:58 08/03/25 07:58 08/03/25 07:58 Pain Score Most Recent Pain Score: Most Recent Pain Score Pain Level 0 08/03/25 07:58 Assessment Mental Status: Awake (Alert & Oriented to Patient Baseline) Airway and Respiratory Function: Patent airway with normal (patient baseline) respiratory exam Cardiovascular Function: Hemodynamically Stable Hydration Status: Adequately Hydrated Nausea & Vomiting: No Nausea or Vomiting Pain: Pt. Denies Any Pain Peripheral Nerve Block: Patient did not receive a nerve block
[2025-08-03 08:22] VITALS: BP 129/84; PULSE 81; RESP 16; TEMP 36.9; O2SAT 96
== END 2025-08-03 08:37 | disposition home or self-care (01) ==
LOC: SUR 05:55
PROVIDERS: PCP Family Medicine; Visit Provider Surgery
PROC: 0DJD8ZZ Inspection of Lower Intestinal Tract, Via Natural or Artificial Opening Endoscopic (ICD-10-PCS; CPT 45378; principal; 2025-08-03 07:30)
DX: Z12.11 Encounter for screening for malignant neoplasm of colon (principal); D12.8 Benign neoplasm of rectum; D37.4 Neoplasm of uncertain behavior of colon; K57.30 Diverticulosis of large intestine without perforation or abscess without bleeding; D12.5 Benign neoplasm of sigmoid colon; D12.0 Benign neoplasm of cecum
CPT/HCPCS: 45385; 45380; 88305; J2003; J2704